=== PATIENT | male | born 1935 | race Hispanic/Latino ===

== ENCOUNTER 2016-10-27 13:04 | Emergency (ER) | payer MEDICARE ==
[2016-10-27 13:13] VITALS: BP 143/70; PULSE 61; RESP 16; TEMP 97; O2SAT 98
[2016-10-27] MEDS ORDERED: Oxycodone/Acetaminophen 5/325 mg Tab PO ONE (13:50)
[2016-10-27 14:11] LABS: BASO % 0.4 % (0.0-2.0); EOS # 0.4 K/uL (0.0-0.7); EOS % 6.7 % (0.0-4.0); HEMOGLOBIN 11.9 g/dL (12.0-18.0); LYMPH # 1.6 K/uL (1.0-4.3); LYMPH % 25.5 % (20.0-40.0); MEAN CELL VOLUME 93.7 fl (80.0-94.0); MEAN CORPUSCULAR HEMOGLOBIN 30.5 pg (27.0-31.0); MEAN CORPUSCULAR HGB CONC 32.5 g/dL (33.0-37.0); MEAN PLATELET VOLUME 8.8 fl (7.2-11.7); MONO # 0.5 K/uL (0.0-0.8); MONO % 8.4 % (0.0-10.0); NEUT # 3.7 K/uL (1.8-7.0); RBC 3.91 Mil/uL (4.40-5.90); RED CELL DISTRIBUTION WIDTH 14.8 % (11.5-14.5); WHITE BLOOD COUNT 6.2 K/uL (4.8-10.8)
--- NOTE | 2016-10-27 14:22 | ED PDOC ---
Lower Extremity Pain/Injury Time Seen by Provider: 10/27/16 13:15 Chief Complaint (Nursing): Lower Extremity Problem/Injury Chief Complaint (Provider): Leg and back pain History Per: Patient History/Exam Limitations: no limitations Onset/Duration Of Symptoms: Days (3) Additional Complaint(s): Patient is an 81 year old male with a past medical history of hypertension, diabetes, deep vein thrombosis, and hypercholesterolemia presenting to the emergency department for radiating back and leg pain ongoing for three days that worsens when walking. Denies fever, abdominal pain, weakness, numbness, and urination problems. PCP: Dr. Jesus Mayfield Past Medical History Reviewed: Historical Data, Nursing Documentation, Vital Signs Vital Signs: Last Vital Signs Temp 97.0 F L 10/27/16 13:13 Pulse 61 10/27/16 13:13 Resp 16 10/27/16 13:13 BP 143/70 10/27/16 13:13 Pulse Ox 98 10/27/16 13:13 - Medical History PMH: Arthritis, Diabetes, Deep Vein Thrombosis, HTN, Hypercholesterolemia - Surgical History Surgical History: No Surg Hx - Family History Family History: States: Unknown Family Hx - Social History Current smoker - smoking cessation education provided: No Ex-Smoker (has not smoked in the last 12 months): No Alcohol: None Drugs: Denies - Home Medications Home Medications: Ambulatory Orders Medication Instructions Recorded Naproxen [Naprosyn Tab] 250 mg PO BID #20 tab 10/27/16 oxyCODONE/Acetaminophen [Percocet 1 ea PO Q6 PRN #15 tab 10/27/16 5/325 mg Tab] - Allergies Allergies/Adverse Reactions: Allergies Allergy/AdvReac Type Severity Reaction Status Date / Time No Known Allergies Allergy Verified 10/27/16 13:09 Review of Systems ROS Statement: Except As Marked, All Systems Reviewed And Found Negative Constitutional: Negative for: Fever Gastrointestinal: Negative for: Abdominal Pain Genitourinary Male: Negative for: Dysuria Musculoskeletal: Positive for: Back Pain (radiates to the right leg), Leg Pain Neurological: Negative for: Weakness, Numbness Physical Exam - Reviewed Nursing Documentation Reviewed: Yes Vital Signs Reviewed: Yes - Physical Exam Appears: Positive for: Well, Non-toxic, No Acute Distress Head Exam: Positive for: ATRAUMATIC, NORMAL INSPECTION, NORMOCEPHALIC Skin: Positive for: Normal Color, Warm, Dry Eye Exam: Positive for: EOMI, Normal appearance, PERRL Neck: Positive for: Normal, Supple Cardiovascular/Chest: Positive for: Regular Rate, Rhythm. Negative for: Murmur Respiratory: Positive for: Normal Breath Sounds. Negative for: Accessory Muscle Use, Respiratory Distress Gastrointestinal/Abdominal: Positive for: Normal Exam, Soft Back: Positive for: Other (Paraspinal tenderness in the right lower back). Negative for: Normal Inspection Extremity: Positive for: Normal ROM, Tenderness (positive straight leg raise) Neurologic/Psych: Positive for: Alert, Oriented - Laboratory Results Result Diagrams: 10/27/16 13:55 10/27/16 13:55 - ECG O2 Sat by Pulse Oximetry: 98 (RA) Pulse Ox Interpretation: Normal Medical Decision Making Medical Decision Making: Time: 13:52 Initial impression: back pain and leg pain Differential diagnoses: sciatica and lumbar radiculopathy to rule out deep vein thrombosis of right leg Initial Plan: -Labs -Lumbar spine MRI -Oxycodone 1 tab PO -US Lower Extremity -Reevaluation 13:37 Lower Extremity Ultrasound Findings: COMMON FEMORAL VEIN: Unremarkable. SUPERFICIAL FEMORAL VEIN: Unremarkable. POPLITEAL VEIN: Unremarkable. POSTERIOR TIBIAL VEIN: Unremarkable. OTHER FINDINGS: None. IMPRESSION: No evidence of deep venous thrombosis in the right lower extremity. 16:43 Lumbar spine MRI findings: VERTEBRAE: Negative study for fracture. DISCS/SPINAL CANAL/NEURAL FORAMINA: L1-2: Unremarkable. L2-3: Disc degenerative changes. Non marginal osteophyte L3-4: Formation bulging annulus fibrosus without focal disc herniation. L4-5: Bulging annulus fibrosus. L5-S1: Unremarkable. PARASPINAL SOFT TISSUES: Unremarkable. OTHER FINDINGS: Simple cyst upper pole right kidney 2.2 cm. IMPRESSION: Mild degenerative changes. No acute findings. 17:22 Clinical Impression: Leg pain and sciatica Upon provider reevaluation patient is feeling better, is medically stable, and requires no further treatment in the ED at this time. Patient will be discharged with Rx for Naproxen and Percocet. Counseling was provided and all questions were answered regarding diagnosis and need for follow up with Dr. Jesus Mayfield. There is agreement to discharge plan. Return if symptoms persist or worsen. Scribe Attestation: Documented by Adrianna Rousseau, acting as a scribe for Jose M Flanagan MD. Provider Scribe Attestation: All medical record entries made by the Scribe were at my direction and personally dictated by me. I have reviewed the chart and agree that the record accurately reflects my personal performance of the history, physical exam, medical decision making, and the department course for this patient. I have also personally directed, reviewed, and agree with the discharge instructions and disposition. Disposition - Clinical Impression Clinical Impression: Leg pain, Sciatica - Patient ED Disposition Is Patient to be Admitted: No Doctor Will See Patient In The: Office Counseled Patient/Family Regarding: Studies Performed, Diagnosis, Need For Followup - Disposition Referrals: Jesus Mayfield MD [Family Provider] - Disposition: Routine/Home Disposition Time: 17:22 Condition: GOOD Additional Instructions: Take your medications as instructed. Follow up with your PCP in 2- 3 days. Prescriptions: Naproxen [Naprosyn Tab] 250 mg PO BID #20 tab oxyCODONE/Acetaminophen [Percocet 5/325 mg Tab] 1 ea PO Q6 PRN #15 tab PRN Reason: Pain, Severe (8-10) Instructions: Sciatica (ED) Forms: [employer] (Mongolian) Print Language: SCOTTISH
[2016-10-27 14:29] LABS: BLOOD UREA NITROGEN 17 mg/dl (9-20); CALCIUM 9.5 mg/dL (8.4-10.2); GFR AFRICAN-AMERICAN > 60; GFR NON-AFRICAN AMERICAN > 60
--- NOTE | 2016-10-27 15:50 | US ---
PROCEDURE: Right lower extremity venous duplex Doppler. HISTORY: Pain right lower extremity 3 weeks duration. COMPARISON: None available. TECHNIQUE: Common femoral, superficial femoral, popliteal and posterior tibial veins were evaluated. Flow was assessed with color Doppler, compressibility, assessment of phasic flow and augmentation response. FINDINGS: COMMON FEMORAL VEIN: Unremarkable. SUPERFICIAL FEMORAL VEIN: Unremarkable. POPLITEAL VEIN: Unremarkable. POSTERIOR TIBIAL VEIN: Unremarkable. OTHER FINDINGS: None. IMPRESSION: No evidence of deep venous thrombosis in the right lower extremity.
--- NOTE | 2016-10-27 16:44 | CT ---
PROCEDURE: CT Lumbar Spine without contrast HISTORY: back pain COMPARISON: None. TECHNIQUE: Axial computed tomography images were obtained of the lumbar spine without the use of intravenous contrast. Coronal and sagittal reformatted images were created and reviewed. Radiation dose: Total exam DLP = 1503.3 mGy-cm. This CT exam was performed using one or more of the following dose reduction techniques: Automated exposure control, adjustment of the mA and/or kV according to patient size, and/or use of iterative reconstruction technique. FINDINGS: VERTEBRAE: Negative study for fracture. DISCS/SPINAL CANAL/NEURAL FORAMINA: L1-2: Unremarkable. L2-3: Disc degenerative changes. Non marginal osteophyte L3-4: Formation bulging annulus fibrosus without focal disc herniation. L4-5: Bulging annulus fibrosus. L5-S1: Unremarkable. PARASPINAL SOFT TISSUES: Unremarkable. OTHER FINDINGS: Simple cyst upper pole right kidney 2.2 cm. IMPRESSION: Mild degenerative changes. No acute findings.
[2016-10-27 17:27] LABS: INR 3.1 (0.9-1.2); PARTIAL THROMBOPLASTIN TIME 42.2 Seconds (25.6-37.1)
== END 2016-10-27 17:51 | disposition home or self-care (01) ==
LOC: H.ER 13:04
DX: M54.31 Sciatica, right side (principal); E11.9 Type 2 diabetes mellitus without complications; I10 Essential (primary) hypertension; Z86.718 Personal history of other venous thrombosis and embolism